=== PATIENT | male | born 1950 | race Caucasian/White ===

== ENCOUNTER → 2016-09-13 | Outpatient (CLI) | payer MEDICARE, OTHER ==
[~2016-09-13] VITALS: Ht 185.4 cm; Wt 102.5 kg
[~2016-09-13] MED LIST: LIDOCAINE 2% INJ 100 MG/5 ML SDV (FOR ANES.) As Ordered ONE; PROPOFOL 500 MG/50 ML VIAL As Ordered ONE
--- NOTE | 2016-09-13 14:03 | ROOR ---
Patient Name: Sergo Gay Procedure Date: 09/13/2016 1:28 PM Date of : 1950 Age: 66 Room: [facility] Gender: Male Note Status: Finalized Procedure: Colonoscopy to Cecum + Hot Snare Polypectomy + Hemoclips Indications: High risk colon cancer surveillance: Personal history of colonic polyps, Last colonoscopy: 2011 Providers: Ed Denny MD Referring MD: FELICIANO IQBAL JR, MD Requesting Provider: Medicines: Monitored Anesthesia Care Complications: No immediate complications. Procedure: Pre-Anesthesia Assessment: - The heart rate, respiratory rate, oxygen saturations, blood pressure, adequacy of pulmonary ventilation, and response to care were monitored throughout the procedure. The Colonoscope was introduced through the anus and advanced to the cecum, identified by appendiceal orifice and ileocecal valve. The colonoscopy was performed without difficulty. The patient tolerated the procedure well. The quality of the bowel preparation was good. Findings: The perianal and digital rectal examinations were normal. Non-bleeding internal hemorrhoids were found during retroflexion. The hemorrhoids were medium-sized and Grade I (internal hemorrhoids that do not prolapse). Scattered small-mouthed diverticula were found in the recto-sigmoid colon, sigmoid colon and descending colon. A medium polyp was found at 45 cm proximal to the anus. The polyp was pedunculated. The polyp was removed with a hot snare. Resection and retrieval were complete. To prevent bleeding after the polypectomy, two hemostatic clips were successfully placed (MR conditional). There was no bleeding at the end of the procedure. The exam was otherwise without abnormality on direct and retroflexion views. Impression: - Non-bleeding internal hemorrhoids. - Diverticulosis in the recto-sigmoid colon, in the sigmoid colon and in the descending colon. - One medium polyp at 45 cm proximal to the anus, removed with a hot snare. Resected and retrieved. Clips (MR conditional) were placed. - The examination was otherwise normal on direct and retroflexion views. - The exam was otherwise normal to the cecum. Recommendation: - Patient has a contact number available for emergencies. The signs and symptoms of potential delayed complications were discussed with the patient. Return to normal activities tomorrow. Written discharge instructions were provided to the patient. - High fiber diet. - Discharge patient to home. - Continue present medications. - Await pathology results. - Telephone GI clinic for pathology results in 1 week. - Check Portal Online for Path Results.([email or web address]) - Repeat colonoscopy in 5 years for surveillance based on pathology results. - Return to referring physician. - The findings and recommendations were discussed with the patient's family. Ed Denny MD Ed Denny MD 09/13/2016 2:02:53 PM This report has been signed electronically. Number of Addenda: 0 Note Initiated On: 09/13/2016 1:28 PM Estimated Blood Loss: Estimated blood loss: none.
[2016-09-13 14:31] VITALS: BP 121/64
== END ==
LOC: M OPP 12:54
PROVIDERS: ATTEND Internal Medicine Gastroenterology
DX: Z12.11 Encounter for screening for malignant neoplasm of colon (principal); D12.6 Benign neoplasm of colon, unspecified; K64.0 First degree hemorrhoids; K57.30 Diverticulosis of large intestine without perforation or abscess without bleeding; K21.9 Gastro-esophageal reflux disease without esophagitis; Z86.010 Personal history of colon polyps

== ENCOUNTER → 2019-11-12 | Outpatient (REF) | payer MEDICARE, OTHER ==
[2019-11-12 14:37] LABS: PERCENT SATURATION 24.6 % (19.7-50.0)
== END ==
LOC: M LAB REF 12:12
PROVIDERS: ATTEND Internal Medicine
DX: Z84.81 Family history of carrier of genetic disease (principal)

== ENCOUNTER → 2022-01-06 | Outpatient (REF) | payer MEDICARE, OTHER ==
[2022-01-06 17:55] LABS: APPEARANCE, URINE MANUAL CLEAR (CLEAR); COLOR, URINE MANUAL DK YELLOW (YELLOW)
[2022-01-06 17:56] LABS: BILIRUBIN, URINE MANUAL NEGATIVE (NEGATIVE); BLOOD URINE MANUAL TRACE (NEGATIVE); GLUCOSE, URINE (UA) MANUAL NEGATIVE (NEGATIVE); KETONE, URINE MANUAL 1+ mg/dL (NEGATIVE); LEUKOCYTE ESTERASE, URINE MAN NEGATIVE (NEGATIVE); NITRITE, URINE MANUAL NEGATIVE (NEGATIVE); PROTEIN, URINE MANUAL 1+ mg/dL (NEGATIVE); UROBILINOGEN, URINE MANUAL NORMAL (NORMAL)
[2022-01-06 18:17] LABS: RBC, URINE NONE SEEN /hpf (0-3); WBC, URINE NONE SEEN /hpf (0-3)
[2022-01-06 18:18] LABS: BACTERIA, URINE NONE SEEN; CALCIUM OXALATE CRYSTALS,URINE LARGE AMOUNT /hpf
[2022-01-06 18:19] LABS: MUCUS, URINE MOD AMOUNT (NEGATIVE); SQUAMOUS EPITHELIAL CELL URINE SMALL AMOUNT /hpf (SMALL AMT)
== END ==
LOC: M SMT 16:48
PROVIDERS: ATTEND Physician Assistant
DX: R97.20 Elevated prostate specific antigen [PSA] (principal); R39.9 Unspecified symptoms and signs involving the genitourinary system

== ENCOUNTER → 2022-02-07 | Outpatient (CLI) | payer MEDICARE, OTHER ==
[~2022-02-07] MED LIST changes: -LIDOCAINE 2% INJ 100 MG/5 ML SDV (FOR ANES.) As Ordered ONE; +PROHANCE 279.3MG/ML 15ML VIAL As Ordered ONE; +PROHANCE 279.3MG/ML 5ML VIAL As Ordered ONE; -PROPOFOL 500 MG/50 ML VIAL As Ordered ONE
== END ==
LOC: M RAD 15:51
PROVIDERS: ATTEND Physician Assistant
DX: R97.20 Elevated prostate specific antigen [PSA] (principal)
CPT/HCPCS: 72197; A9576

== ENCOUNTER → 2022-03-17 | Outpatient (REF) | payer MEDICARE, OTHER | LOC: M SFHCADAM 13:55 | PROVIDERS: ATTEND Physician Assistant | DX: N41.9 Inflammatory disease of prostate, unspecified (principal) ==

== ENCOUNTER → 2022-04-03 | Outpatient (CLI) | payer MEDICARE, OTHER | LOC: M LABSMTC 10:49 | PROVIDERS: ATTEND Anesthesiology | DX: Z01.818 Encounter for other preprocedural examination (principal); Z11.52 Encounter for screening for COVID-19 ==

== ENCOUNTER 2022-04-05 09:02 | Day surgery (SDC) | payer MEDICARE, OTHER ==
[~2022-04-05] VITALS: Ht 185.4 cm; Wt 95.3 kg
[~2022-04-05 09:02] MED LIST changes: +NS 1,000 ML IV ONE; -PROHANCE 279.3MG/ML 15ML VIAL As Ordered ONE; -PROHANCE 279.3MG/ML 5ML VIAL As Ordered ONE
[2022-04-05] MEDS ORDERED: propofoL 200 MG/20 ML VIAL As Ordered ONE (09:45)
[2022-04-05 11:30] VITALS: BP 126/75
== END 2022-04-05 11:38 | disposition home or self-care (01) ==
LOC: M OPP 09:02
PROVIDERS: ATTEND Internal Medicine Gastroenterology
DX: Z86.010 Personal history of colon polyps (principal); D12.0 Benign neoplasm of cecum; K64.0 First degree hemorrhoids; K57.30 Diverticulosis of large intestine without perforation or abscess without bleeding

== ENCOUNTER → 2022-10-13 | Outpatient (REF) | payer MEDICARE, OTHER ==
[2022-10-13 13:54] LABS: PERCENT SATURATION 30.6 % (19.7-50.0)
[2022-10-13 13:57] LABS: FERRITIN 141.4 NG/ML (10.5-307.3)
== END ==
LOC: M LAB REF 12:45
PROVIDERS: ATTEND Internal Medicine
DX: Z84.81 Family history of carrier of genetic disease (principal)